=== PATIENT | female | born 2000 | race Caucasian/White ===

== ENCOUNTER 2022-01-24 15:23 | Emergency (ER) | payer MEDICAID ==
[~2022-01-24] VITALS: Ht 172.7 cm; Wt 55.0 kg
[2022-01-24] MEDS ORDERED: LIDOcaine 1% w/epiNEPHrine 1:200,000 30ml vial SQ ONE (15:50)
[2022-01-24] MEDS ORDERED: LIDOcaine 1% W/epiNEPHrine 1:100,000 20ml vial IJ ONE (16:20)
[2022-01-24 16:50] LABS: BASOPHILS % (AUTO) 0.5 % (0-1); EOSINOPHILS # (AUTO) 0.1 X10'3 (0-0.9); EOSINOPHILS % (AUTO) 1.4 % (0-6); HEMATOCRIT 45.8 % (35.0-45.0); HEMOGLOBIN 15.6 g/dl (12.0-16.0); LYMPHOCYTES # (AUTO) 1.4 X10'3 (1.1-4.8); LYMPHOCYTES % (AUTO) 14.7 % (21-51); MEAN CORPUSCULAR HGB CONC 34.1 g/dL (33.0-36.5); MEAN CORPUSCULAR VOLUME 84.8 FL (78-98); MEAN PLATELET VOLUME 8.5 FL (7.4-10.4); MONOCYTES # (AUTO) 0.8 X10'3 (0-0.9); MONOCYTES % (AUTO) 8.1 % (2-12); NEUTROPHILS # (AUTO) 7.1 X10'3 (1.8-7.7); NEUTROPHILS % (AUTO) 75.3 % (42-75); PLATELET COUNT 311 X10'3 (140-440); RED CELL DISTRIBUTION WIDTH 12.6 % (11.5-14.5); WHITE BLOOD COUNT 9.5 X10'3 (4.5-11.0)
[2022-01-24 16:53] LABS: ALANINE AMINOTRANSFERASE 17 U/L (12-78); ALBUMIN 4.7 G/DL (3.4-5.0); ALBUMIN/GLOBULIN RATIO 1.3 (1.1-1.5); ALKALINE PHOSPHATASE 61 IU/L (46-116); ANION GAP 9 (8-16); ASPARTATE AMINO TRANSFERASE 17 U/L (10-37); BILIRUBIN,TOTAL 0.3 MG/DL (0.1-1.0); BLOOD UREA NITROGEN 14 MG/DL (7-18); BUN/CREATININE RATIO 14.3 (6.6-38.0); CALCIUM 9.2 MG/DL (8.5-10.1); CHLORIDE 102 MMOL/L (99-107); CREATININE 0.98 MG/DL (0.40-0.90); GLUCOSE 92 MG/DL (70-104); POTASSIUM 3.9 MMOL/L (3.5-5.1); SODIUM 136 MMOL/L (135-145); TOTAL CARBON DIOXIDE 25.5 MMOL/L (24-32); TOTAL PROTEIN 8.3 G/DL (6.4-8.2); eGFR 70 ML/MIN
[2022-01-24 16:57] LABS: ETHANOL < 0.010 GM/DL (0.0-0.010)
[2022-01-24] MEDS ORDERED: ZOLP5TAB2 PO (18:18)
[2022-01-24] MEDS ORDERED: SPIR100T5 PO (18:19)
[2022-01-24 18:35] LABS: URINE AMPHETAMINE SCREEN NEGATIVE (Neg); URINE BARBITUATE SCREEN NEGATIVE (Neg); URINE BENZODIAZEPINES SCREEN NEGATIVE (Neg); URINE CANNABINOID SCREEN NEGATIVE (Neg); URINE COCAINE SCREEN NEGATIVE (Neg); URINE METHADONE SCREEN NEGATIVE (Neg); URINE OPIATE SCREEN NEGATIVE (Neg); URINE PHENCYCLIDINE SCREEN NEGATIVE (Neg)
[2022-01-24] MEDS ORDERED: spironolactone 25 MG tablet PO SCH (20:08)
[2022-01-24] MEDS: zolpidem 5mg tablet PO PRN (21:13)
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
--- NOTE | 2022-01-25 08:57 | NUR ---
Karson [facility], evaluating patient. No distress observed at this time. Continue to monitor.
--- NOTE | 2022-01-25 09:30 | NUR ---
Patient resting in bed at this time. Up to the BR as needed. Ate breakfast. Patient's diet order changed to Vegan after interviewing the patient. Will continue to monitor.
[2022-01-25] MEDS: spironolactone 25 MG tablet PO SCH ×2 (10:00→20:09)
--- NOTE | 2022-01-25 11:30 | NUR ---
Patient sleeping at this time. Gave Spironolactone at 1000 per MD orders. Will continue to monitor patient. [id number] completed with evaluation by VANNA Gasca.
--- NOTE | 2022-01-25 13:30 | NUR ---
Resting in bed. No complaints at this time.
--- NOTE | 2022-01-25 14:40 | NUR ---
Noted patient extremely small lacerations to inside thumb x2, and 2nd extremely small lac on the inside of her 2nd finger on her right hand. Cleansed wounds using NS with no drainage noted on all bandaids, as well as new bandaids applied to right 2nd finger lac and right thumb lac. Will continue to monitor daily. Patient reports "I don't know how I got these."
--- NOTE | 2022-01-25 16:30 | NUR ---
Patient ambulated to the BR without assistance. Patient requested saltine crackers for snack and they were given to her by the PCT. Patient resting in bed most of the day. Will continue to monitor patient.
--- NOTE | 2022-01-25 17:35 | NUR ---
Patient up to the bathroom to void. Patient's vital signs taken and Temp was 100 degrees orally. HR 98. Patient denies any possible source of infection. Patient states "my body temperature always runs really warm." Small laceration wounds assessed approximately 3 to 4 hours ago. Wounds appeared benign and cleansed with NS and bandaid applied (see earlier note). Will pass information on during noc shift report, then they can recheck later this evening. Patient came up to the Nurse's station to inform that she is currently on Ambien 10mg po hs. Patient states he provider is Sasha Samson. JOSSIE Holly looked on this patient's external med rec, and noted that on 08/05/21, patient was on Ambien 5mg po hs, and on 12/08/21, patient was on Ambien 10mg po hs. Will pass on to noc shift that pt is requesting to take Ambien 10mg po tonight if the provider approves this dose.
--- NOTE | 2022-01-25 18:56 | NUR ---
Assumed care of pt from Lily SETHI. Pt resting in bed with no apparent signs of distress. Pt room located next to nursing station. Will continue to monitor.
[2022-01-25] MEDS: zolpidem 5mg tablet PO PRN (20:11)
--- NOTE | 2022-01-25 20:49 | NUR ---
Pt in bed, resting comfortably, requested evening medications. No signs of distress.
--- NOTE | 2022-01-25 23:11 | NUR ---
PT up to use the restroom. Asked for water and saltines. No complaints or signs of distress at this time.
--- NOTE | 2022-01-26 00:53 | NUR ---
Pt sleeping in bed, no signs and symptoms of distress at this time.
--- NOTE | 2022-01-26 03:22 | NUR ---
PT up to use restroom. No complaints or needs at this time.
--- NOTE | 2022-01-26 06:45 | NUR ---
PATIENT SLEEPING, NO SIGNS OF DISTRESS NOTED, EASILY AROUSED VIA VERBAL STIMULI.
--- NOTE | 2022-01-26 07:45 | NUR ---
Patient up to bathroom at this time. gait steady, balanced, no signs of distress noted.
--- NOTE | 2022-01-26 08:15 | NUR ---
PATIENT SLEEPING, NO SIGNS OF DISTRESS NOTED.
[2022-01-26] MEDS: spironolactone 25 MG tablet PO SCH (08:44)
--- NOTE | 2022-01-26 09:00 | NUR ---
Patient speaking with Karson from [facility].
--- NOTE | 2022-01-26 09:10 | NUR ---
Patient speaking with Curtis from [facility], no signs of distress noted, patient calm and cooperative at this time, pat within sight of staff at all times.
--- NOTE | 2022-01-26 10:20 | NUR ---
PATIENT RESTING, READING BOOK, NO SIGNS OF DISTRESS NOTED.
--- NOTE | 2022-01-26 11:10 | NUR ---
PATIENT RESTING ON RIGHT SIDE, READING BOOK.
--- NOTE | 2022-01-26 12:54 | NUR ---
PATIENT UP TO BATHROOM AT THIS TIME, SAFELY RETURNED TO BED, PAT WITHIN SIGHT OF STAFF AT ALL TIMES.
--- NOTE | 2022-01-26 13:16 | NUR ---
SPOKE WITH GARCÍA IRWIN, NEED UA AND TSH PRIOR TO ACCEPTING PATIENT TO FACILITY.
--- NOTE | 2022-01-26 14:00 | NUR ---
PATIENT RESTING, NO SIGNS OF DISTRESS NOTED, WILL CONTINUE TO MONITOR.
[2022-01-26 14:30] LABS: CLARITY,URINE CLEAR (Clear); COLOR,URINE YELLOW (Yellow); GLUCOSE, URINE NEGATIVE (Neg); KETONES,URINE NEGATIVE (Neg); LEUKOCYTE ESTERASE ,URINE NEGATIVE (Neg); NITRITES, URINE NEGATIVE (Neg); OCCULT BLOOD,URINE NEGATIVE (Neg); PH,URINE 7.5 (4.8-8.0); PROTEIN,URINE NEGATIVE (Neg); UROBILINOGEN,URINE 0.2 E.U/dL (0.2-1.0)
[2022-01-26 14:37] LABS: UA COLLECTION TYPE CLN CATCH MIDSTREAM
--- NOTE | 2022-01-26 15:43 | NUR ---
PATIENT READING, NO SIGNS OF DISTRESS NOTED.
--- NOTE | 2022-01-26 16:01 | NUR ---
PATIENT SPEAKING ON PHONE QUIETLY, NO SIGNS OF DISTRESS NOTED. PAT WITHIN LINE OF SIGHT OF STAFF AT ALL TIMES.
--- NOTE | 2022-01-26 17:03 | NUR ---
PATIENT SITTING UP IN BED, COMBING OUT HAIR WITH FINGERS, NO SIGNS OF DISTRESS NOTED.
[2022-01-26 17:30] VITALS: BP 100/69
--- NOTE | 2022-01-26 17:50 | NUR ---
PATIENT ACCEPTED TO [facility] WITH ESTIMATED RADIOACTIVITY TECHNICIAN AT [id number].
--- NOTE | 2022-01-26 20:32 | NUR ---
Assumed care of patient. Patient was asking where her sweater was located. Locateed sweater. [facility] to picker/puller pt at 20:30. Pt picked up by [facility] at 20:00. Coubnty worker picked up pt.
== END 2022-01-26 20:00 ==
LOC: ER 15:24
DX: S61.011A Laceration without foreign body of right thumb without damage to nail, initial encounter (principal); Z20.822 Contact with and (suspected) exposure to COVID-19; Z79.899 Other long term (current) drug therapy; X58.XXXA Exposure to other specified factors, initial encounter; Y93.89 Activity, other specified; Y92.89 Other specified places as the place of occurrence of the external cause; Y99.8 Other external cause status
CPT/HCPCS: 36415; 80053; 80305; 80320; 81003; 84443; 85025; 87635; 99285; C9803

== ENCOUNTER 2022-05-10 20:18 | Emergency (ER) | payer MEDICAID ==
[~2022-05-10] VITALS: Ht 172.7 cm; Wt 56.8 kg
[~2022-05-10 20:18] MED LIST: SPIR100T5 PO; ZOLP5TAB2 PO
[2022-05-10 21:29] LABS: BASOPHILS % (AUTO) 0.6 % (0-1); EOSINOPHILS # (AUTO) 0.2 X10'3 (0-0.9); EOSINOPHILS % (AUTO) 3.6 % (0-6); HEMATOCRIT 45.1 % (35.0-45.0); HEMOGLOBIN 14.7 g/dl (12.0-16.0); LYMPHOCYTES # (AUTO) 1.3 X10'3 (1.1-4.8); LYMPHOCYTES % (AUTO) 28.5 % (21-51); MEAN CORPUSCULAR HEMOGLOBIN 28.1 PG (27.0-31.0); MEAN CORPUSCULAR HGB CONC 32.7 g/dL (33.0-36.5); MEAN CORPUSCULAR VOLUME 85.8 FL (78-98); MEAN PLATELET VOLUME 8.7 FL (7.4-10.4); MONOCYTES # (AUTO) 0.4 X10'3 (0-0.9); MONOCYTES % (AUTO) 8.9 % (2-12); NEUTROPHILS # (AUTO) 2.6 X10'3 (1.8-7.7); NEUTROPHILS % (AUTO) 58.4 % (42-75); PLATELET COUNT 247 X10'3 (140-440); RED BLOOD COUNT 5.25 X10'6 (4.20-5.60); RED CELL DISTRIBUTION WIDTH 12.8 % (11.5-14.5); WHITE BLOOD COUNT 4.5 X10'3 (4.5-11.0)
[2022-05-10 21:43] LABS: ALBUMIN 4.3 G/DL (3.4-5.0); ANION GAP 9 (8-16); BILIRUBIN,TOTAL 0.6 MG/DL (0.1-1.0); BLOOD UREA NITROGEN 10 MG/DL (7-18); CALCIUM 8.8 MG/DL (8.5-10.1); CHLORIDE 102 MMOL/L (99-107); CREATININE 0.91 MG/DL (0.40-0.90); GLUCOSE 87 MG/DL (70-104); POTASSIUM 4.1 MMOL/L (3.5-5.1); SODIUM 140 MMOL/L (135-145); TOTAL CARBON DIOXIDE 29.2 MMOL/L (24-32); TOTAL PROTEIN 8.1 G/DL (6.4-8.2); eGFR 77 ML/MIN
[2022-05-10 21:44] LABS: ALANINE AMINOTRANSFERASE 14 U/L (12-78); ALBUMIN/GLOBULIN RATIO 1.1 (1.1-1.5); ALKALINE PHOSPHATASE 55 IU/L (46-116); ASPARTATE AMINO TRANSFERASE 13 U/L (10-37)
[2022-05-10 21:59] LABS: ETHANOL < 0.010 GM/DL (0.0-0.010)
[2022-05-10 22:26] LABS: URINE HCG NEGATIVE (NEG)
[2022-05-10 22:34] LABS: CLARITY,URINE CLEAR (Clear); COLOR,URINE YELLOW (Yellow); GLUCOSE, URINE NEGATIVE (Neg); KETONES,URINE NEGATIVE (Neg); LEUKOCYTE ESTERASE ,URINE NEGATIVE (Neg); NITRITES, URINE NEGATIVE (Neg); OCCULT BLOOD,URINE NEGATIVE (Neg); PH,URINE 7.5 (4.8-8.0); PROTEIN,URINE TRACE mg/dl (Neg)
[2022-05-10 22:38] LABS: UA COLLECTION TYPE CLN CATCH MIDSTREAM
[2022-05-10 22:42] LABS: URINE AMPHETAMINE SCREEN NEGATIVE (Neg); URINE BARBITUATE SCREEN NEGATIVE (Neg); URINE BENZODIAZEPINES SCREEN NEGATIVE (Neg); URINE CANNABINOID SCREEN NEGATIVE (Neg); URINE COCAINE SCREEN NEGATIVE (Neg); URINE METHADONE SCREEN NEGATIVE (Neg); URINE OPIATE SCREEN NEGATIVE (Neg); URINE PHENCYCLIDINE SCREEN NEGATIVE (Neg)
[2022-05-10 22:44] LABS: BACTERIA,URINE FEW /HPF (Neg); MUCUS STRANDS FEW /LPF (Neg); RBC,URINE 0-2 /HPF (0-2); SQUAMOUS EPITHELIAL CELL,UR FEW /LPF (FEW); WBC CLUMPS,URINE FEW /HPF (NEGATIVE)
--- NOTE | 2022-05-10 23:35 | NUR ---
Patient received from Main ED, cooperative. Patient requested nutrition, obliged.
--- NOTE | 2022-05-11 | NUR ---
Patient resting in bed in lines of sight of staff
[2022-05-11] MEDS ORDERED: zolpidem 5mg tablet PO PRN (00:35)
[2022-05-11] MEDS ORDERED: spironolactone 25 MG tablet PO ONE (00:45)
--- NOTE | 2022-05-11 00:56 | NUR ---
Meds administered as ordered, patient remains cooperative in a safe environment.
--- NOTE | 2022-05-11 02:19 | NUR ---
Patient's chart faxed to [facility]
--- NOTE | 2022-05-11 02:20 | NUR ---
Patient resting quietly in bed in lines of sight of all staff.
--- NOTE | 2022-05-11 03:20 | NUR ---
Pt ambulated to rest room. Back to bed.
--- NOTE | 2022-05-11 03:46 | NUR ---
Patient inquired how much milligram of Ambien she received, 5mg. Patient states she normally takes 10mg and that she has been unable to sleep since the administration.
--- NOTE | 2022-05-11 04:31 | NUR ---
Pt awake, doodling to entertain self.
--- NOTE | 2022-05-11 05:44 | NUR ---
Patient awake, sitting up quietly in bed.
[2022-05-11 06:00] VITALS: BP_DIAS 61
[2022-05-11] MEDS ORDERED: spironolactone 25 MG tablet PO SCH (08:00)
[2022-05-11 08:04] VITALS: BP_SYST 96
--- NOTE | 2022-05-11 12:11 | NUR ---
Pt refused lunch. Awaiting discharge.
--- NOTE | 2022-05-11 12:52 | NUR ---
Pt has been given and understands d/c instructions. 5150 hold has been rescinded by mental health staff. Ambulatory with a steady gait. Escorted out of the building by security. Given a bus pass.
== END 2022-05-11 12:52 ==
LOC: ER 20:19
DX: R45.850 Homicidal ideations (principal); Z20.822 Contact with and (suspected) exposure to COVID-19; F31.9 Bipolar disorder, unspecified; F20.9 Schizophrenia, unspecified; Z59.00 Homelessness unspecified; Z79.899 Other long term (current) drug therapy
CPT/HCPCS: 36415; 80053; 80305; 80320; 81001; 81025; 85025; 87811; 99285